=== PATIENT | male | born 1945 | race Caucasian/White ===

== ENCOUNTER 2017-03-16 07:32 | Day surgery (SDC) | payer MEDICARE, OTHER ==
[~2017-03-16] VITALS: Ht 175.3 cm; Wt 88.0 kg
[~2017-03-16 07:32] MED LIST: FELO2.5T8 PO; LISI40TA PO; SIMV10TA4 PO
[2017-03-16] MEDS ORDERED: fentaNYL-PF 50 mCg/mL 2 mL Inj ONE (07:39)
[2017-03-16 07:45] VITALS: BP 136/80; PULSE 59; RESP 16; O2SAT 98
[2017-03-16] MEDS ORDERED: 0.9% Sodium Chloride 1,000 ML IV PRN (07:54)
[2017-03-16] MEDS ORDERED: Sodium Chloride LOK Flush 10 mL Syringe IV PRN (07:55)
[2017-03-16] MEDS ORDERED: fentaNYL-PF 50 mCg/mL 2 mL Inj IVPUSH PRN (07:55)
[2017-03-16 08:33] VITALS: BP 107/67; PULSE 67; RESP 16; O2SAT 95
--- NOTE | 2017-03-16 08:46 | ENDO ---
[address] [address] ENDOSCOPY PROCEDURE PATIENT: DARNELL DRAKE : 1945 MR#: [id number] ADMIT: 03/16/2017 JOB ID: [id number] DATE: 03/16/2017 PROCEDURE: Colonoscopy. INDICATION: The patient with personal history of colon polyps. The patient's ASA classification is 2. Mallampati score is 2. MEDICATIONS: 1. Versed 3 mg. 2. Fentanyl 75 mcg. INSTRUMENT USED: PCF H 180 AL. PREPARATION QUALITY: Was fair. PROCEDURE DETAILS: After informed consent was obtained, the patient was brought into the GI suite, where she was placed on oxygen via nasal cannula and monitored with continuous pulse oximeter, telemetry and blood pressure monitoring. A time-out was performed. Then, she was placed in the left lateral decubitus position and medications were administered for sedation. Digital rectal examination with palpation of the prostate was performed, which was unremarkable. The colonoscope was then inserted into the rectum and advanced under direct visualization to the cecum, which was identified by the presence of the ileocecal valve and appendiceal orifice. Once the cecum was reached, the colonoscope was withdrawn back into the rectum as the mucosa and lumen were examined. In the rectum, retroflexion was performed. Following retroflexion, remaining air in the rectum was suctioned, and procedure was completed. FINDINGS: 1. In the ascending colon, there were three polyps that were removed with a combination of cold biopsy forceps and cold snare. 2. In the transverse colon, there were two polyps that were removed with cold snare. 3. In the descending colon, there were two polyps removed with combination of cold snare and cold biopsy forceps. 4. In the sigmoid colon, there was an approximately 1.5 cm pedunculated polyp that was removed with a hot snare. 5. Scattered diverticula were seen throughout the left side of the colon. 6. Retroflexed views in the rectum revealed [id number] size internal hemorrhoids. IMPRESSION: 1. Three ascending colon polyps. 2. Two transverse polyps. 3. Two descending polyps. 4. One sigmoid polyp. 5. Left-sided diverticulosis. 6. [id number] internal hemorrhoids. RECOMMENDATIONS: 1. Avoid nonsteroidal anti-inflammatory drugs and anticoagulants for 72 hours. 2. Fiber rich diet. 3. Repeat colonoscopy in three years. COMPLICATIONS: None. ESTIMATED BLOOD LOSS: Less than 5 mL.
[2017-03-16 08:52] VITALS: BP 120/70; PULSE 56; RESP 14; O2SAT 97
--- NOTE | 2017-03-17 13:57 | PATH ---
SURGICAL PATHOLOGY Attending Physician:Britt Chairez CASE STATUS: Signed Out PATIENT NAME: DARNELL DRAKE PID: [id number] : 1945 DATE COLLECTED:03/16/2017 16:58 SPECIMEN: 1: Colon, Biopsy 2: Colon, Biopsy 3: Colon, Biopsy 4: Colon, Biopsy CLINICAL HISTORY: 1. ASCENDING COLON POLYPS 2. TRANSVERSE COLON POLYPS 3. DESCENDING COLON POLYPS 4. SIGMOID COLON POLYPS FINAL DIAGNOSIS: 1. Ascending Colon, Polyps, Biopsies: Portions of tubular adenoma x4; negative for high-grade dysplasia. Superficial portion of colorectal mucosa x1 with no significant histomorphologic abnormality. 2. Transverse Colon, Polyps, Biopsies: Portion of tubular adenoma x1; negative for high-grade dysplasia. Superficial portion of colorectal mucosa x1 with no significant histomorphologic abnormality. 3. Descending Colon, Polyps, Biopsies: Portions of tubular adenoma x3; negative for high-grade dysplasia. Superficial portion of colorectal mucosa x1 with no significant histomorphologic abnormality. 4. Sigmoid Colon, Polyp, Biopsy: Tubular adenoma x 1; negative for high-grade dysplasia. Hyperplastic polyp x 1. ICD10: K63.5 GROSS DESCRIPTION: The specimen is received in four formalin filled containers labeled with the patient's name. 1). The specimen is sublabeled "ascending colon polyps" and consists of 5 portions of tissue which aggregate to 0.4 x 0.3 x 0.3 CM. The specimen is entirely submitted in cassettes 1A. 2). The specimen is sublabeled "transverse colon polyps" and consists of 2 tiny portions of tissue which aggregate to 0.3 x 0.3 x 0.2 CM. The specimen is entirely submitted in cassette 2A. 3). The specimen is sublabeled "descending colon polyps" and consists of 4 portions of tissue which aggregate to 0.4 x 0.4 x 0.3 CM. The specimen is entirely submitted in cassette 3A. 4). The specimen is sublabeled "sigmoid colon polyp" and consists of 2 portions of tissue which aggregate to 0.6 x 0.6 x 0.5 CM. The smallest portion is entirely submitted. The largest portion is bisected and submitted in the same cassette. 03/16/2017 [facility] ICD-9 CODES: CPT CODES: 1: 25647 2: 34343 3: 76518 4: 82592 Electronically Signed Out Shana Loja MD [facility] [address], [place] [address] Technical component performed at [facility], [address], [place], [address]
== END 2017-03-16 23:59 | disposition home or self-care (01) ==
LOC: END 07:32
PROVIDERS: ATTEND Internal Medicine Gastroenterology
DX: Z12.11 Encounter for screening for malignant neoplasm of colon (principal); Z86.010 Personal history of colon polyps; D12.2 Benign neoplasm of ascending colon; D12.3 Benign neoplasm of transverse colon; D12.4 Benign neoplasm of descending colon; D12.5 Benign neoplasm of sigmoid colon; K57.30 Diverticulosis of large intestine without perforation or abscess without bleeding; K64.8 Other hemorrhoids
CPT/HCPCS: 45385; 88305; 99153; G0500; J2250; J3010; J7030